=== PATIENT | female | born 1985 | race Caucasian/White ===

== ENCOUNTER 2017-11-08 18:19 | Emergency (ER) | payer MEDICAID ==
[2017-11-08] MEDS ORDERED: IBUPROFEN 200 MG TAB PO (19:00)
[2017-11-08] MEDS: HYDROCODONE/APAP (5/325) TAB PO (19:53)
== END 2017-11-08 21:38 | disposition home or self-care (01) ==
LOC: FTE 18:19
DX: R51 Headache (principal); M54.2 Cervicalgia; M54.9 Dorsalgia, unspecified
CPT/HCPCS: 70450; 72125; 99285-25